=== PATIENT | female | born 1980 | race Caucasian/White ===

== ENCOUNTER 2021-10-14 12:34 | Outpatient (RCR) | payer SELFPAY | END 2021-10-14 19:00 | disposition home or self-care (01) | LOC: PT 12:34 | DX: Z00.00 Encounter for general adult medical examination without abnormal findings (principal) ==

== ENCOUNTER 2024-02-03 14:25 | Outpatient (RCR) | payer SELFPAY | END 2024-02-03 19:00 | disposition home or self-care (01) | LOC: PT 14:25 | DX: Z00.00 Encounter for general adult medical examination without abnormal findings (principal) ==